=== PATIENT | male | born 1995 | race Caucasian/White ===

== ENCOUNTER 2018-06-24 19:58 | Emergency (ER) | payer MEDICAID, OTHER ==
[~2018-06-24] VITALS: Wt 93.7 kg
[~2018-06-24 19:58] MED LIST: ALBUTEROL INH
[2018-06-24 20:00] VITALS: BP 163/70; PULSE 77; RESP 20
--- NOTE | 2018-06-24 21:08 | ERD ---
ER Documentation Chief Complaint Chief Complaint AUDITORY HALLUCINATIONS, DENIES SI/HI HPI This is a 23-year-old male who presents for evaluation of auditory hallucinations. The patient relates the symptoms to having chronic marijuana use, as well as insomnia. He has no psychiatric history, he denies other substance abuse, he does denies homicidal or suicidal ideations. He states he is hungry, and requests food. ROS All systems reviewed and are negative except as per history of present illness. Medications Home Meds Reported Medications [Albuterol] No Conflict Check, INH PRN for SHORTNESS OF BREATH 07/12/13 Allergies Allergies: Coded Allergies: No Known Allergy (Unverified , 07/12/13) PMhx/Soc History of Surgery: No Anesthesia Reaction: No Hx Neurological Disorder: No Hx Respiratory Disorders: Yes (ASTHMA) Hx Cardiac Disorders: No Hx Psychiatric Problems: Yes (PROBLEMS W/ ANGER MANAGEMENT) Hx Miscellaneous Medical Probl: No Hx Alcohol Use: Yes (ON OCCASION) Hx Substance Use: Yes (CANNABIS) Hx Tobacco Use: Yes Physical Exam Vitals Vital Signs Date Temp Pulse Resp B/P (MAP) Pulse Ox O2 O2 Flow FiO2 Time Delivery Rate 06/24/18 98.4 98 20 158/71 98 Room Air 21:11 (100) 06/24/18 99.1 77 20 163/70 97 20:00 (101) Physical Exam Const: Pleasant, well-appearing well-developed well-nourished Head: Atraumatic Eyes: Normal Conjunctiva ENT: Normal External Ears, Nose and Mouth. Neck: Full range of motion. No meningismus. Resp: Clear to auscultation bilaterally Cardio: Regular rate and rhythm, no murmurs Abd: Soft, non tender, non distended. Normal bowel sounds Skin: No petechiae or rashes Back: No midline or flank tenderness Ext: No cyanosis, or edema Neur: Awake and alert Psych: Endorses auditory hallucinations, no SI or HI Procedures/MDM Is a 23-year-old male who presents for evaluation of auditory sensation. On exam patient well-appearing nontoxic, he denies any suicidal or homicidal ideations, he denies any pain or any other complaints. Patient was lucid, and conversive, he was able to endorse a plan of care to me, at this point I do not suspect an organic cause for her symptoms, I suspect the most likely related to marijuana use, there is no indication for psychiatric consult this time at discharge she was in no distress. Departure Diagnosis: Primary Impression: Hallucinations Condition: Stable MATEO MINOR MD June 24, 2018 21:08
== END 2018-06-25 10:52 | disposition home or self-care (01) ==
LOC: E/R 19:58
DX: R44.0 Auditory hallucinations (principal); J45.909 Unspecified asthma, uncomplicated; Z87.891 Personal history of nicotine dependence
CPT/HCPCS: 99282